=== PATIENT | male | born 1945 | race Caucasian/White ===

== ENCOUNTER → 2017-03-06 | Outpatient (CLI) | payer OTHER | LOC: FIMAGING 09:10 | PROVIDERS: ATTEND Family Medicine Sports Medicine | DX: M16.0 Bilateral primary osteoarthritis of hip (principal); M17.11 Unilateral primary osteoarthritis, right knee; M11.261 Other chondrocalcinosis, right knee ==

== ENCOUNTER → 2017-03-19 | Outpatient (CLI) | payer OTHER | LOC: FIMAGING 12:45 | PROVIDERS: ATTEND Family Medicine Sports Medicine | DX: M54.5 Low back pain (principal); M51.37 Other intervertebral disc degeneration, lumbosacral region; M43.06 Spondylolysis, lumbar region; M16.0 Bilateral primary osteoarthritis of hip ==

== ENCOUNTER → 2017-04-28 | Outpatient (CLI) | payer OTHER | LOC: FIMAGING 15:09 | PROVIDERS: ATTEND Family Medicine Sports Medicine | DX: M51.26 Other intervertebral disc displacement, lumbar region (principal); M47.896 Other spondylosis, lumbar region; M51.36 Other intervertebral disc degeneration, lumbar region; M48.06 Spinal stenosis, lumbar region ==

== ENCOUNTER 2018-03-20 05:31 | Inpatient (IN) | payer OTHER ==
[2018-03-20] MEDS ORDERED: MAGNESIUM HYDROXIDE 30 ML UDCUP PO PRN (06:04)
[2018-03-20] MEDS ORDERED: ONDANSETRON DISINTEGRATING 4 MG TAB PO PRN (06:04)
[2018-03-20] MEDS ORDERED: ONDANSETRON 4 MG/2 ML VIAL IVP PRN ×2 (06:04→08:36)
[2018-03-20] MEDS ORDERED: diphenhydrAMINE 25 MG CAP PO PRN (06:04)
[2018-03-20] MEDS ORDERED: CYCLOBENZAPRINE 10 MG TAB PO PRN (06:04)
[2018-03-20] MEDS ORDERED: ACETAMINOPHEN 325 MG TAB PO ONE (06:04)
[2018-03-20] MEDS ORDERED: FAMOTIDINE 20 MG TAB PO ONE (06:04)
[2018-03-20] MEDS ORDERED: POLYETHYLENE GLYCOL 3350 17 GM PKT PO PRN (06:04)
[2018-03-20] MEDS ORDERED: DIPHENOXYLATE/ATROPINE LOMOTIL 1 TAB PO PRN (06:04)
[2018-03-20] MEDS ORDERED: oxyCODONE IR 5 MG TAB PO PRN (06:04)
[2018-03-20] MEDS ORDERED: BISACODYL 10 MG SUPP PR PRN (06:04)
[2018-03-20] MEDS ORDERED: LR 1,000 ML IV SCH (06:04)
[2018-03-20] MEDS ORDERED: ONDANSETRON 4 MG/2 ML VIAL IVP ONE (06:04)
[2018-03-20] MEDS ORDERED: LACTULOSE 20 GM/30 ML UDCUP PO PRN (06:04)
[2018-03-20] MEDS ORDERED: PROMETHAZINE HCL 25 MG SUPPR PR PRN (06:04)
[2018-03-20] MEDS ORDERED: ceFAZolin 2 GM/DEXTROSE 100 ML IV ONE (06:04)
[2018-03-20] MEDS ORDERED: PROMETHAZINE HCL 25 MG/ML INJ IVP PRN ×3 (06:04→09:39)
[2018-03-20] MEDS ORDERED: TEMAZEPAM 15 MG CAP PO PRN ×2 (06:04→09:39)
[2018-03-20] MEDS ORDERED: LR 1,000 ML IV ONE (06:09)
[2018-03-20] MEDS ORDERED: LIDOCAINE 1% 2 ML INJ ID PRN (06:09)
--- NOTE | 2018-03-20 07:07 | PDHPUP ---
History & Physical Update H&P update statement: This history and physical update is based on an assessment of the patient which was completed after admission or registration (within 24 hours), but prior to the surgery/procedure. H&P update: H&P reviewed & patient examined (no changes), no change in patient' s condition since H&P completed
[2018-03-20] MEDS ORDERED: MIDAZOLAM 2 MG/2 ML VIAL IVP ONE (07:12)
--- NOTE | 2018-03-20 07:14 | PDANEPAE ---
ANE History of Present Illness r hip oa ANE Past Medical History - Cardiovascular History Hx Hypertension: No Hx Arrhythmias: No Hx Chest Pain: No Hx Coronary Artery / Peripheral Vascular Disease: No Hx CHF / Valvular Disease: Yes Hx Palpitations: No Cardiovascular History Comment: hx of syncope. 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 seen at [facility]. hyperlipidemia - Pulmonary History Hx COPD: No Hx Asthma/Reactive Airway Disease: No Hx Recent Upper Respiratory Infection: No Hx Oxygen in Use at Home: No Hx Sleep Apnea: No Sleep Apnea Screening Result - Last Documented: Negative - Neurologic History Hx Cerebrovascular Accident: No Hx Seizures: No Hx Dementia: No - Endocrine History Hx Diabetes: No - Renal History Hx Renal Disorders: Yes Renal History Comment: bph. hx of negative prostate bx a year ago - Liver History Hx Hepatic Disorders: No - Neurological & Psychiatric Hx Hx Neurological and Psychiatric Disorders: No - Cancer History Hx Cancer: No - Congenital Disorder History Hx Congenital Disorders: No - GI History Hx Gastrointestinal Disorders: No - Other Health History Other Health History: wearing glasses more than contacts. dental fillings. fungus to toenails and fingernails- healing now - Chronic Pain History Chronic Pain: Yes (bilateral hips) - Surgical History Prior Surgeries: 12/16/10 AVR. tonsillectomy ANE Review of Systems Review of Systems: - Exercise capacity METS (RN): 3 METS ANE Patient History - Allergies Allergies/Adverse Reactions: No Known Allergies Allergy (Verified 03/08/18 11:26) - Home Medications Home Medications: Aspirin EC [Aspirin EC 81 mg (*)] 81 mg PO DAILY 03/08/18 [Last Taken 03/13/18] Cholecalciferol Vit D3 [Vitamin D3 (*)] 2,000 units PO DAILY 03/08/18 [Last Taken 03/13/18] Herbals/Supplements -Info Only 1 ea PO DAILY 03/08/18 [Last Taken 03/13/18] - NPO status NPO Since - Liquids (Date): 03/19/18 NPO Since - Liquids (Time): 22:30 NPO Since - Solids (Date): 03/19/18 NPO Since - Solids (Time): 21:30 - Smoking Hx Smoking Status: Never smoked - Family Anes Hx Family Hx Anesthesia Complications: none ANE Labs/Vital Signs - Vital Signs Blood Pressure: 143/63 Heart Rate: 78 Respiratory Rate: 16 O2 Sat (%): 99 Height: 171.1 cm Weight: 74 kg ANE Physical Exam - Airway Neck exam: FROM Mallampati Score: Class 1 Mouth exam: normal dental/mouth exam - Pulmonary Pulmonary: no respiratory distress - Cardiovascular Cardiovascular: regular rate and rhythym - ASA Status ASA Status: III ANE Anesthesia Plan Anesthesia Plan: general endotracheal anesthesia, spinal
[2018-03-20] MEDS ORDERED: MIDAZOLAM 2 MG/2 ML VIAL ONE (07:17)
[2018-03-20] MEDS ORDERED: ROCURONIUM 50 MG/5 ML VIAL ONE (07:19)
[2018-03-20] MEDS ORDERED: fentaNYL 100 MCG/2 ML INJ ONE ×2 (07:19)
[2018-03-20] MEDS ORDERED: PROPOFOL 200 MG/20 ML VIAL ONE (07:19)
[2018-03-20] MEDS ORDERED: ceFAZolin 1 GM/5 ML SYR ONE (07:31)
[2018-03-20] MEDS ORDERED: ROPI/epINEPH/KETOROLAC IU ONE (08:00)
[2018-03-20] MEDS ORDERED: BUPIVACAINE/DEXTROSE 7.5MG/ML 2 ML SPINAL AMP SP ONE (08:19)
[2018-03-20] MEDS ORDERED: PHENYLEPHRINE HCL 100 MCG/ML SYR ONE (08:20)
[2018-03-20] MEDS ORDERED: ePHEDrine SULFATE 25 MG/5 ML SYR ONE (08:20)
[2018-03-20] MEDS ORDERED: ONDANSETRON 4 MG/2 ML VIAL ONE (08:20)
[2018-03-20] MEDS ORDERED: DEXAMETHASONE 4 MG/ML VIAL ONE (08:20)
[2018-03-20] MEDS ORDERED: HYDROmorphONE/DILAUDID 1 MG/ML INJ IVP PRN (08:36)
[2018-03-20] MEDS ORDERED: NALOXONE HCL 0.4 MG/ML INJ IVP PRN (08:36)
[2018-03-20] MEDS ORDERED: fentaNYL 100 MCG/2 ML INJ IVP PRN (08:36)
[2018-03-20] MEDS ORDERED: OXYCODONE/APAP 5/325 TAB PO PRN (09:39)
[2018-03-20] MEDS ORDERED: D5W 1/2 NS W/ 20 KCl/L 1,000 ML IV SCH (09:45)
--- NOTE | 2018-03-20 09:53 | PDMN ---
Medical Necessity Medical necessity: [facility] S560 [place] INTP only : R GAETANO
--- NOTE | 2018-03-20 09:59 | POSTANESTH ---
Post Anesthetic Evaluation Cardiovascular Status: Normal, Stable Respiratory Status: Normal, Stable Level of Consciousness/Mental Status: Can Participate in Eval Pain Control: Adequate, Prn Tx Ordered Nausea/Vomiting Control: Adequate, Prn Tx Ordered Complications Possibly Related to Anesthesia: None Noted
[2018-03-20] MEDS: SENNOSIDES/DOCUSATE SODIUM TAB PO SCH ×2 (11:01→21:29)
--- NOTE | 2018-03-20 14:25 | ASMTCASEMG ---
Living Arrangements What is your living Answers: Alone arrangement? Who do you live with? Type Of Residence What kind of residence do Answers: House you live in? Discharge Plan Comments Coordination Status Comments Notes: Pt is a 72 y/o man admitted for a total hip. Therapies have been ordered and awaiting recommendations. Needs are TBD at this time. CM to follow. Plan: TBD Date Signed: 03/20/2018 02:25 PM Electronically Signed By:CARLOS MANUEL Silverman
--- NOTE | 2018-03-20 15:53 | GOP ---
[f rep st] OPERATIVE REPORT DATE OF OPERATION: 03/20/2018 SURGEON: Ryan Allred MD RECEIVING MANAGER: Justino De Leon. ANESTHESIA: General. PREOPERATIVE DIAGNOSIS: Osteoarthritis, right hip. POSTOPERATIVE DIAGNOSIS: Osteoarthritis, right hip. PROCEDURE PERFORMED: Right total hip arthroplasty. FINDINGS: DESCRIPTION OF PROCEDURE: The patient was taken to the operating room, placed in the left lateral de cubitus position. Had his right hip and lower extremity prepped and draped in normal sterile fashion . A direct superior approach was utilized. The trochanteric markings were made. The incision was t hen made 45 degrees to the posterolateral corner of the greater trochanter. It was carried through d ermal subcutaneous tissues. The gluteal fascia was divided. Small bleeders were cauterized. Blunt dissection was performed down through the gluteus alex to the fat pad overlying the external rotat ors, and the gluteus medius was then reflected superiorly. The fat pad was taken down. The piriform is and obturator internus were released and tagged and reflected posteriorly. The hip capsule was th en incised. The posterior labral tissue was excised. The hip was then dislocated. neck cut was then made about 0.75 cm above the lesser trochanter. It was made with the oscillating saw. A 2nd neck cut was then made after measuring the head and neck segment, another 0.25 cm distally. The acetabulum was then exposed. The fatty tissue in the cotyloid notch was removed. The labral tis parul was excised. Reaming commenced in the acetabulum with a size 46, extending up to a size 60. The 60 trial was impacted into position. A trial liner was put in place. The neck segment was then exp osed and retractors were positioned. A box osteotome was used to remove bone in the greater trochant er. A starting reamer was placed down through the canal. Reaming commenced with a size 5 and extend ed up to a size 10. Broaching began with a size 7 and extended up to a size 10. Trial broach was le ft in place. We initially trialed a +0 and went to a +2.5 mm. Leg lengths were equal. The hip was put through a range of motion after relocating the trials. The hip was stable through flexion and in ternal rotation and extension and external rotation maneuver. The trials were brought out. The real implants were opened. Thorough lavage performed. Deep infiltration was performed with a cocktail solution. The real aceta bular cup was impacted into position. We had a good secure fit. No screws were felt necessary. The real liner was impacted into position. The cup was a size 60, Alpha Code G. The Trident 0 degree p olyethylene insert was a size 36, Alpha Code G. The stem that we selected was a secure fit max 127 d egree neck angle hip stem, size 10. This was impacted into position. The Biolox Delta ceramic C tap er femoral head was a +2-1/2 neck length. The trunnion was dried and this was impacted onto the trun nion. Relocation was performed. The hip was put through range of motion felt to be stable. The hip capsule was then reapproximated with a #1 Vicryl suture. The piriformis and obturator internus tend ons were then brought back down to the greater trochanter and reattached with a #1 Ethibond suture. The gluteal fascial interval was closed with a 2-0 Vicryl suture followed by closure of the subcutane ous tissue with a 2-0 Vicryl suture followed by closure of the dermis with a 3-0 Monocryl suture. Ir rigation performed with normal saline. Dermabond was utilized to seal the incision. The Mepilex ban dage was applied. The patient had an abduction pillow placed between his legs. [facility] was [facility] to the recovery room in stable condition. There were no operative complications. All implants w ere [place] implants with Trident cup and secure fit max stem with a Biolox Delta head. COMPLICATIONS: None. /[id number]/MODL
[2018-03-20] MEDS ORDERED: WARFARIN SODIUM 5 MG TAB PO ONE (16:00)
[2018-03-20] MEDS ORDERED: ceFAZolin 2 GM/DEXTROSE 100 ML IV SCH (16:00)
[2018-03-21 05:44] LABS: INR 1.29 (0.83-1.16); PROTIME(PATIENT) 16.3 SEC (12.0-15.0)
[2018-03-21] MEDS ORDERED: NS 1,000 ML IV ONE (06:00)
[2018-03-21] MEDS: SENNOSIDES/DOCUSATE SODIUM TAB PO SCH ×2 (08:33→23:18)
--- NOTE | 2018-03-21 10:52 | SOAPPROG ---
SOAP Progress Note Assessment/Plan: Assessment: POD#1 Right Hip Total Arthroplasty Pt. had some episodes of hypotension late last evening, 80's/40/s. Most notably at 11:30 pm while up walking, felt very lightheaded and almost had a syncopal episode. Laid in bed the remainder of the evening feeling somewhat weak, lightheaded. I was called this AM at 0545 and recommended a fluid bolus. Pt. has received this and is feeling better. His pressures have been coming up, currently at 96/50. Plan:Continue PT/OT Continue oral pain medications as needed Continue Abduction pillow while supine Continue SCD's/ETIENNE hose Continue Warfarin with pharmacy to dose Continue Ice PRN Continue LR 125ml/hour Monitor Blood Pressure Consider hospitalist consult if pressures remain low/pt. is symptomatic Continue to monitor urine output Likely D/C tomorrow or following day-depending on how pt. does with PT/OT and hypotension. Watch H and H, currently 8.03/18 Subjective: Pt. states that he has had no fevers, Headaches, lightheadedness is resolving as mentioned above, No SOB, Abd. pain, N/V, No N/T of the lower extremities, no calf pain. He states that while sitting, the pain in the right hip is non-existent. He has minor pain with moving in bed and transferring. The pain is in the lateral hip/radiating to the mid-upper leg. He states that it feels like muscle tightness. He mentions that when his aortic valve was replaced he had a similar reaction due to anesthesia, in which it was hard to keep his blood pressure up. After increasing fluids and some time, his pressures normalized. He does typically run quite low, however. He thinks he typically is 100/50's. Objective: Pt. is siting up in his room, conversing with OT and his family. He is resting comfortably in NAD. His respirations are easy and unlabored. Skin is warm and dry to all extremities. Distally, pulses are brisk and equal to both lower extremities. Calves are soft, supple, minimal to no tenderness to squeeze-only on the right. Examination of his dressing reveals a dry dressing in place with a small area of ecchymosis around the dressing. No discharge, redness, warmth or swelling. 03/21/18 10:35 Objective: Vital Signs Temp Pulse Resp BP Pulse Ox 37.4 C 83 16 85/43 L 95 03/21/18 07:52 03/21/18 07:52 03/21/18 07:52 03/21/18 07:52 03/21/18 07:52 Laboratory Results 03/21/18 05:01 03/20/18 03/21/18 03/22/18 05:59 05:59 05:59 Intake Total 4380 350 Output Total 1400 150 Balance 2980 200 PT 16.3 SEC (12.0-15.0) H 03/21/18 05:01 INR 1.29 (0.83-1.16) H 03/21/18 05:01 - Pending Discharge Pending Discharge Within 24 Hours: Yes Pending Discharge Within 48 Hours: Yes Pending Discharge Date: 03/22/18 Pending Discharge Time: 11:00 ICD10 Worksheet Patient Problems: Problems Problem Status Onset History of total replacement of right hip Acute - ICD10 Problem Qualifiers (1) History of total replacement of right hip
--- NOTE | 2018-03-21 11:00 | ASMTCMCOM ---
CM Note CM Note Notes: Chart reviewed. per therapies, SNF is recommended as patient is s/p hip with hypotension. His primary home would be unmanageable and he can go to a friends home but she has 14 stairs to navigate as well. The patient is agreeable to SNF. Provided pamphlets for [facility] as well as [facility]. He will stay overnight. Referrals to be placed in allscripts. CM to follow. plan: To SNF when medically cleared for discharge. Date Signed: 03/21/2018 10:53 AM Electronically Signed By:Karma Oakley RN
[2018-03-21] MEDS ORDERED: WARFARIN SODIUM 5 MG TAB PO ONE (16:00)
[2018-03-22 05:17] LABS: INR 1.33 (0.83-1.16); PROTIME(PATIENT) 16.7 SEC (12.0-15.0)
--- NOTE | 2018-03-22 07:43 | SOAPPROG ---
SOAP Progress Note Assessment/Plan: Assessment: need to motivate and get going today. Post op films look great. Incision/hip look good Plan: up with PT. evaluate with stairs. Trying to get him home but mind set on extended stay. With motivation this may change 03/22/18 07:40 Objective: Vital Signs Temp Pulse Resp BP Pulse Ox 37.4 C 79 18 95/54 L 94 03/21/18 22:13 03/21/18 22:13 03/21/18 22:13 03/21/18 22:13 03/21/18 22:13 Laboratory Results 03/22/18 04:55 03/21/18 03/22/18 03/23/18 05:59 05:59 05:59 Intake Total 4380 2400 Output Total 1400 1925 Balance 2980 475 PT 16.7 SEC (12.0-15.0) H 03/22/18 04:55 INR 1.33 (0.83-1.16) H 03/22/18 04:55 Leg soft, CSMT ok Hip films look good ICD10 Worksheet Patient Problems: Problems Problem Status Onset History of total replacement of right hip Acute
[2018-03-22 08:11] VITALS: BP 109/60
[2018-03-22] MEDS: SENNOSIDES/DOCUSATE SODIUM TAB PO SCH (08:34)
[2018-03-22] MEDS ORDERED: CHOLECALCIFEROL VIT D3 1,000 UNITS TAB PO SCH (09:00)
--- NOTE | 2018-03-22 10:10 | ASMTCMCOM ---
CM Note CM Note Notes: Chart reviewed. Spoke to Leonie PAINTER. Patient seen by Dr. Allred and has been cleared for dc to SNF rehab. I met with patient who reports his choice is [facility]. Awaiting Transfer of Care summary. Patient to inform his family. [facility] aware of likely dc today. CM available should other needs arise. Plan: DC to SNF [facility] Date Signed: 03/22/2018 10:09 AM Electronically Signed By:Karma Oakley RN
--- NOTE | 2018-03-22 10:48 | PDIAF ---
- Diagnosis Diagnosis: Right total hip arthroplasty Code Status: Full Code - Medication Management Discharge Medications: Medications to Continue on Transfer Aspirin EC [Aspirin EC 81 mg (*)] 81 mg PO DAILY 03/08/18 [Last Taken 03/13/18] Cholecalciferol Vit D3 [Vitamin D3 (*)] 2,000 units PO DAILY 03/08/18 [Last Taken 03/13/18] Herbals/Supplements -Info Only 1 ea PO DAILY 03/08/18 [Last Taken 03/13/18] Additional Medication Instructions: Warfarin 5 mg. daily for 4 weeks. Pt. has prescription. Discharge Medications: Refer to the Discharge Home Medication list for PRN reason. PICC Care - Routine: N/A - Orders Services needed: Physical Therapy, Occupational Therapy Diet Recommendation: no restrictions on diet Diet Texture: Regular Texture Diet Wound Care Instructions: Please change dressing if wet or soaked through. Date to Remove Sutures/[place]: 04/02/18 (at patient's post-op visit in office) Activity/Weight Bearing Restrictions: Weight Bear as tolerated Additional Instructions: 1. The patient is to remain weight bearing as tolerated on his right lower extremity. He is to use assistive devices for ambulation purposes as instructed. He is to attend physical therapy at least twice weekly as instructed. 2. The patient is to continue his posterior hip precautions as instructed. He is to avoid flexion of the hip past 90 deg, as well as crossing his legs or feet past midline. 3. The patient is to continue to keep his surgical incision sites clean and dry at all times, covering them for showering purposes. He is to avoid soaking his surgical incisions until after his follow up. 4. The patient is to continue watch for signs of infection at his surgical incision sites, including but not limited to: increased redness or drainage, significant increases in pain or swelling, or constitutional symptoms such as fevers, chills, nausea or vomiting. He is to contact the office immediately should any of these occur. 5. The patient is to continue to wear his ETIENNE hose, day and night, until follow up. 6. The patient is to continue his Warfarin medication as directed. He will need to have outpatient PT/INR testing done twice weekly (preferably Mondays and ) to assist in the dosing of this medication. The results of these lab test will be relayed to the office at [facility], who will then contact the patient to adjust his dosages as necessary. This will continue for 4 weeks postoperatively. 7. The patient is to avoid NSAID medications while he is on his warfarin. He is also to avoid smoking as this can delay healing. 8. The patient is to take his prescription pain medication as directed, as well as resume his home medications as directed. 9. The patient is to follow up with Dr. Allred 10-14 days postoperatively, or sooner with any additional concerns or complaints. This appointment has been previously scheduled. 10. The patient is encouraged to contact the office at [phone] with any questions/concerns. - Labs/Radiology PT/INR Date: 03/25/18 (Every Sunday and for 4 weeks. ) - Follow Up Care Current Providers and Referrals: Shai Schneider MD [Primary Care Provider] - Ryan Allred MD [Medical Doctor] - (The patient will follow up 10-14 days postoperatively, or sooner with any additional concerns or complaints. This appointment has been previously scheduled for 04/02/2018)
--- NOTE | 2018-03-22 12:06 | ASMTLACE ---
GHAZAL Length of stay for Answers: 2 days current admission Acuity / Level of Answers: Yes Care: Did the patient have an inpatient admission? Comorbidities - select Answers: Congestive heart failure all that apply Opioid dependence / Chronic pain # of Emergency department Answers: 0 visits in the last 6 months Score: 11 Date Signed: 03/22/2018 12:06 PM Electronically Signed By:Karma Oakley RN
--- NOTE | 2018-03-22 13:37 | PDIAF ---
- Diagnosis Diagnosis: Right total hip arthroplasty Code Status: Full Code - Medication Management Discharge Medications: Medications to Continue on Transfer Aspirin EC [Aspirin EC 81 mg (*)] 81 mg PO DAILY 03/08/18 [Last Taken 03/13/18] Cholecalciferol Vit D3 [Vitamin D3 (*)] 2,000 units PO DAILY 03/08/18 [Last Taken 03/13/18] Herbals/Supplements -Info Only 1 ea PO DAILY 03/08/18 [Last Taken 03/13/18] Percocet 5/325 (*) 1 - 2 tab PO Q4-6PRN PRN 03/22/18 [Last Taken Unknown] Warfarin Sodium tab PO DAILY 03/22/18 [Last Taken Unknown] Additional Medication Instructions: Warfarin 5 mg. daily for 4 weeks. Pt. has prescription. Discharge Medications: Refer to the Discharge Home Medication list for PRN reason. PICC Care - Routine: N/A - Orders Services needed: Physical Therapy, Occupational Therapy Diet Recommendation: no restrictions on diet Diet Texture: Regular Texture Diet Wound Care Instructions: Please change dressing if wet or soaked through. Date to Remove Sutures/[place]: 04/02/18 (at patient's post-op visit in office) Activity/Weight Bearing Restrictions: Weight Bear as tolerated Additional Instructions: 1. The patient is to remain weight bearing as tolerated on his right lower extremity. He is to use assistive devices for ambulation purposes as instructed. He is to attend physical therapy at least twice weekly as instructed. 2. The patient is to continue his posterior hip precautions as instructed. He is to avoid flexion of the hip past 90 deg, as well as crossing his legs or feet past midline. 3. The patient is to continue to keep his surgical incision sites clean and dry at all times, covering them for showering purposes. He is to avoid soaking his surgical incisions until after his follow up. 4. The patient is to continue watch for signs of infection at his surgical incision sites, including but not limited to: increased redness or drainage, significant increases in pain or swelling, or constitutional symptoms such as fevers, chills, nausea or vomiting. He is to contact the office immediately should any of these occur. 5. The patient is to continue to wear his ETIENNE hose, day and night, until follow up. 6. The patient is to continue his Warfarin medication as directed. He will need to have outpatient PT/INR testing done twice weekly (preferably Mondays and ) to assist in the dosing of this medication. The results of these lab test will be relayed to the office at [facility], who will then contact the patient to adjust his dosages as necessary. This will continue for 4 weeks postoperatively. 7. The patient is to avoid NSAID medications while he is on his warfarin. He is also to avoid smoking as this can delay healing. 8. The patient is to take his prescription pain medication as directed, as well as resume his home medications as directed. 9. The patient is to follow up with Dr. Allred 10-14 days postoperatively, or sooner with any additional concerns or complaints. This appointment has been previously scheduled. 10. The patient is encouraged to contact the office at [phone] with any questions/concerns. - Labs/Radiology PT/INR Date: 03/25/18 (Every Sunday and for 4 weeks. ) - Follow Up Care Current Providers and Referrals: Shai Schneider MD [Primary Care Provider] - Ryan Allred MD [Medical Doctor] - (The patient will follow up 10-14 days postoperatively, or sooner with any additional concerns or complaints. This appointment has been previously scheduled for 04/02/2018)
--- NOTE | 2018-03-22 14:14 | ASDISCHSUM ---
Discharge Information Plan Status:SNF Medically Cleared to Leave:03/22/2018 Discharge Date:03/22/2018 01:38 PM CM D/C Disposition:Shelter Facility ADT D/C Disposition:Shelter Facility Projected Discharge Date:03/22/2018 11:00 AM Transportation at D/C:Wheelchair Van Discharge Delay Reason: Follow-Up Date:03/22/2018 11:00 AM Discharge Slot: Final Diagnosis: Placement Information Referral Type:*[facility]/SNF Referral ID:[facility]-[id number] Provider Name:[facility] Address 1:[address] Address 2: City:[place] Selection Factors: State:[place] Patient Contact Information Contact Name:ERNESTO Relationship:Other Address: Work Phone: City:[place] Alternate Phone: State/Zip Code:[place] Email: Financial Information Financial Class:Medicare Advantage Plans Primary Plan Desc:[facility] [employer] Primary Plan Number:[id number] Secondary Plan Desc: Secondary Plan Number: Assessment Information [facility] Initial CM Assessment Living Arrangements What is your living Answers: Alone arrangement? Who do you live with? Type Of Residence What kind of residence do Answers: House you live in? Discharge Plan Comments Coordination Status Comments Notes: Pt is a 72 y/o man admitted for a total hip. Therapies have been ordered and awaiting recommendations. Needs are TBD at this time. CM to follow. Plan: TBD Date Signed: 03/20/2018 02:25 PM Electronically Signed By:CARLOS MANUEL Silverman LACE LACGala Length of stay for Answers: 2 days current admission Acuity / Level of Answers: Yes Care: Did the patient have an inpatient admission? Comorbidities - select Answers: Congestive heart failure all that apply Opioid dependence / Chronic pain # of Emergency department Answers: 0 visits in the last 6 months Score: 11 Date Signed: 03/22/2018 12:06 PM Electronically Signed By:Karma Oakley RN [facility] CM Progress Note CM Note CM Note Notes: Chart reviewed. per therapies, SNF is recommended as patient is s/p hip with hypotension. His primary home would be unmanageable and he can go to a friends home but she has 14 stairs to navigate as well. The patient is agreeable to SNF. Provided pamphlets for [facility] as well as [facility]. He will stay overnight. Referrals to be placed in allscripts. CM to follow. plan: To SNF when medically cleared for discharge. Date Signed: 03/21/2018 10:53 AM Electronically Signed By:Karma Oakley RN [facility] CM Progress Note CM Note CM Note Notes: Chart reviewed. Spoke to Leonie PAINTER. Patient seen by Dr. Allred and has been cleared for dc to SNF rehab. I met with patient who reports his choice is [facility]. Awaiting Transfer of Care summary. Patient to inform his family. [facility] aware of likely dc today. CM available should other needs arise. Plan: DC to SNF [facility] Date Signed: 03/22/2018 10:09 AM Electronically Signed By:Karma Oakley RN Intervention Information Intervention Type:*IM-Signed Date of Service:03/22/2018 10:18 AM Patient Type:Inpatient Staff Member:Michelle Edwards Hours: Discipline: Severity: Comment:
--- NOTE | 2018-04-19 14:35 | GDS ---
[f rep st] DISCHARGE SUMMARY PREOPERATIVE DIAGNOSIS: Right hip osteoarthritis. POSTOPERATIVE DIAGNOSIS: Right hip osteoarthritis. PROCEDURE PERFORMED: Right total hip arthroplasty. HOSPITAL COURSE: The patient was admitted, placed on IV Ancef for antibiotic measure and taken to [facility] operating room on 03/20/2018, whereupon he underwent a right total hip arthroplasty performed by Dr Jennyfer Allred. There were no intraoperative complications. Postoperative treatment for VTE prophylaxis in cluded mechanical prophylaxis with ETIENNE hose and sequential compression devices, as well as warfarin f or VTE chemoprophylaxis. His incision appeared to be healing well at the time of discharge and his h ospital stay was otherwise uneventful. DISCHARGE INSTRUCTIONS: The patient was advised to remain weightbearing as tolerated on his right lo wer extremity. He was to use assistive devices for ambulation as instructed. He was to continue phy sical therapy twice weekly as instructed. He was also to continue posterior hip precautions as instr ucted. The patient followed up 10-14 days postoperatively for wound check and suture removal. He wa s advised to continue to wear his ETIENNE hose day and night until his followup appointment, and continue his warfarin medication, as well as PT and INR checks as ordered. He also was advised to avoid anti -inflammatory medications while he was on his warfarin. He could resume his other medications upon r eturning home. /[id number]/MODL
== END 2018-03-22 13:38 | DRG 470 ==
LOC: F3N 05:31
PROVIDERS: ADMIT Orthopaedic Surgery Sports Medicine; ATTEND Orthopaedic Surgery Sports Medicine
PROC: 0SR904Z Replacement of Right Hip Joint with Ceramic on Polyethylene Synthetic Substitute, Open Approach (ICD-10-PCS; principal; 2018-03-20 07:15)
DX: M16.11 Unilateral primary osteoarthritis, right hip (principal); N40.0 Benign prostatic hyperplasia without lower urinary tract symptoms
CPT/HCPCS: 97110-GP; 97116-GP; 97161-GP; 97165-GO; 97530-GO; 97530-GP; G8978-GP-CJ; G8979-GP-CI; G8987-GO-CJ; G8988-GO-CI; J0171; J0690; J1100; J1885; J2250; J2370; J2405; J2704; J2795; J3010

== ENCOUNTER 2018-07-03 05:45 | Inpatient (IN) | payer OTHER ==
[2018-07-03] MEDS ORDERED: TRANEXAMIC ACID 1,000 MG in NS 100 ML IV ONE (06:00)
[2018-07-03] MEDS ORDERED: GABAPENTIN 300 MG CAP PO ONE (06:00)
[2018-07-03] MEDS ORDERED: FAMOTIDINE 20 MG TAB PO ONE (06:00)
[2018-07-03] MEDS ORDERED: ACETAMINOPHEN 325 MG TAB PO ONE (06:00)
[2018-07-03] MEDS ORDERED: ceFAZolin 2 GM/DEXTROSE 100 ML IV ONE (06:00)
[2018-07-03] MEDS ORDERED: DEXAMETHASONE 4 MG/ML VIAL IVP ONE (06:00)
[2018-07-03] MEDS ORDERED: LR 1,000 ML IV ONE (06:01)
[2018-07-03] MEDS ORDERED: ceFAZolin 1 GM/5 ML SYR ONE (06:45)
[2018-07-03] MEDS ORDERED: ROPIVACAINE 0.2% 80 MG, EPINEPHrine 0.2 MG, KETOROLAC TROMETHAMINE 30 MG, morphINE 10 M... IU ONE (07:05)
[2018-07-03] MEDS ORDERED: MIDAZOLAM 2 MG/2 ML VIAL IVP ONE (07:07)
--- NOTE | 2018-07-03 07:09 | PDANEPAE ---
ANE Past Medical History - Cardiovascular History Hx Hypertension: No Hx Arrhythmias: No Hx Chest Pain: No Hx Coronary Artery / Peripheral Vascular Disease: No Hx CHF / Valvular Disease: Yes Hx Palpitations: No Cardiovascular History Comment: hx of syncope. 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 LAST VISIT APR 2018. hyperlipidemia - Pulmonary History Hx COPD: No Hx Asthma/Reactive Airway Disease: No Hx Recent Upper Respiratory Infection: No Hx Oxygen in Use at Home: No Hx Sleep Apnea: No Sleep Apnea Screening Result - Last Documented: Negative - Neurologic History Hx Cerebrovascular Accident: No Hx Seizures: No Hx Dementia: No - Endocrine History Hx Diabetes: No - Renal History Hx Renal Disorders: Yes Renal History Comment: bph. hx of negative prostate bx - Liver History Hx Hepatic Disorders: No - Neurological & Psychiatric Hx Hx Neurological and Psychiatric Disorders: No - Cancer History Hx Cancer: No - Congenital Disorder History Hx Congenital Disorders: No - GI History Hx Gastrointestinal Disorders: No - Other Health History Other Health History: NEG - Chronic Pain History Chronic Pain: Yes (bilateral hips) - Surgical History Prior Surgeries: R GAETANO. 12/16/10 AVR. tonsillectomy ANE Review of Systems Review of Systems: - Exercise capacity METS (RN): 4 METS ANE Patient History - Allergies Allergies/Adverse Reactions: No Known Allergies Allergy (Verified 07/03/18 06:05) - Home Medications Home medications: home medication list seen and reviewed Home Medications: Aspirin EC [Aspirin EC 81 mg (*)] 81 mg PO DAILY 03/08/18 [Last Taken 03/13/18] Herbals/Supplements -Info Only 1 ea PO DAILY 03/08/18 [Last Taken 03/13/18] Warfarin Sodium 6 mg PO DAILY 06/21/18 [Last Taken Unknown] - NPO status NPO Status: no food or drink >8 hours NPO Since - Liquids (Date): 07/03/18 NPO Since - Liquids (Time): 03:00 NPO Since - Solids (Date): 07/02/18 NPO Since - Solids (Time): 19:00 - Anes Hx Anes Hx: no prior problems (Urinary retention following SAB for GAETANO) - Smoking Hx Smoking Status: Never smoked - Family Anes Hx Family Hx Anesthesia Complications: none ANE Labs/Vital Signs - Vital Signs Blood Pressure: 117/76 Heart Rate: 76 Respiratory Rate: 16 Height: 177.8 cm Weight: 72.575 kg ANE Physical Exam - Airway Neck exam: FROM Mallampati Score: Class 2 Mouth exam: normal dental/mouth exam - Pulmonary Pulmonary: no respiratory distress, no rales or rhonchi, clear to auscultation - Cardiovascular Cardiovascular: regular rate and rhythym, no murmur, rub, or gallop - ASA Status ASA Status: III ANE Anesthesia Plan Anesthesia Plan: spinal
--- NOTE | 2018-07-03 07:11 | PDGENHP ---
History & Physical Chief Complaint: Left Hip Pain History of Present Illness: Patient has long standing osteoarthritis of left hip. he has failed conservative management and has decided to move forward with a left GAETANO. He has previous right GAETANO which he has done well with. Allergies: None. Medications: baby aspirin daily. Medical/Surgical: History of Right Total Hip Arhtroplasty 3 months ago. Aortic valve replacement surgery many years ago. Pertinent Past, Social, Family History: denies smoking. Drinks occasionally. No relevant family history Relevant Physical Exam: LUE. Painful ROM of left hip. No open wounds or signs of infection. Walks with antalgic gait favoring left leg. Cardio: RRR. Lungs: Clear to auscultation
[2018-07-03] MEDS ORDERED: BUPIVACAINE/DEXTROSE 7.5MG/ML 2 ML SPINAL AMP SP ONE (07:18)
[2018-07-03] MEDS ORDERED: PROPOFOL 200 MG/20 ML VIAL ONE ×2 (07:25→08:43)
[2018-07-03] MEDS ORDERED: fentaNYL 100 MCG/2 ML INJ ONE (07:25)
[2018-07-03] MEDS ORDERED: ROPI/epiNEPH/KETOROLAC/morphINE JOINT COCKTAIL IU ONE (07:30)
[2018-07-03] MEDS ORDERED: ePHEDrine SULFATE 25 MG/5 ML SYR ONE (08:18)
[2018-07-03] MEDS ORDERED: DEXAMETHASONE 4 MG/ML VIAL ONE ×2 (08:18)
[2018-07-03] MEDS ORDERED: NALOXONE HCL 0.4 MG/ML INJ IVP PRN (08:40)
[2018-07-03] MEDS ORDERED: fentaNYL 100 MCG/2 ML INJ IVP PRN (08:40)
[2018-07-03] MEDS ORDERED: HYDROCODONE/APAP 5/325 TAB PO PRN (08:40)
[2018-07-03] MEDS ORDERED: oxyCODONE IR 5 MG TAB PO PRN ×2 (08:40→09:23)
[2018-07-03] MEDS ORDERED: DIAZEPAM 5 MG/ML 1 ML SYR IVP PRN (08:40)
[2018-07-03] MEDS ORDERED: PROMETHAZINE HCL 25 MG/ML INJ IVP PRN ×2 (08:40→09:23)
[2018-07-03] MEDS ORDERED: ONDANSETRON 4 MG/2 ML VIAL IVP PRN ×2 (08:40→09:23)
[2018-07-03] MEDS ORDERED: LR 500 ML IV PRN (08:40)
[2018-07-03] MEDS ORDERED: ACETAMINOPHEN 500 MG TAB PO PRN (08:40)
[2018-07-03] MEDS ORDERED: PHENYLEPHRINE HCL 100 MCG/ML SYR ONE (08:52)
[2018-07-03] MEDS ORDERED: PROMETHAZINE HCL 25 MG SUPPR PR PRN (09:23)
[2018-07-03] MEDS ORDERED: METOCLOPRAMIDE 10 MG/2 ML VIAL IVP PRN (09:23)
[2018-07-03] MEDS ORDERED: ONDANSETRON DISINTEGRATING 4 MG TAB PO PRN (09:23)
[2018-07-03] MEDS ORDERED: LACTULOSE 20 GM/30 ML UDCUP PO PRN (09:23)
[2018-07-03] MEDS ORDERED: diphenhydrAMINE 25 MG CAP PO PRN (09:23)
[2018-07-03] MEDS ORDERED: BISACODYL 10 MG SUPP PR PRN (09:23)
[2018-07-03] MEDS ORDERED: MAGNESIUM HYDROXIDE 30 ML UDCUP PO PRN (09:23)
[2018-07-03] MEDS ORDERED: TEMAZEPAM 15 MG CAP PO PRN (09:23)
[2018-07-03] MEDS ORDERED: NS 500 ML IV PRN (09:23)
[2018-07-03] MEDS ORDERED: POLYETHYLENE GLYCOL 3350 17 GM PKT PO PRN (09:23)
[2018-07-03] MEDS ORDERED: CYCLOBENZAPRINE 10 MG TAB PO PRN (09:23)
[2018-07-03] MEDS ORDERED: DIPHENOXYLATE/ATROPINE LOMOTIL 1 TAB PO PRN (09:23)
[2018-07-03] MEDS ORDERED: NS 1,000 ML IV SCH (09:30)
--- NOTE | 2018-07-03 09:33 | POSTANESTH ---
Post Anesthetic Evaluation Cardiovascular Status: Other, See Comment (BP 94/60 on arrival; I expect it to rise as SAB resolves.) Respiratory Status: Normal, Stable, Similar to Pre-op Cond. Level of Consciousness/Mental Status: Can Participate in Eval, Alert and Oriented Pain Control: Adequate, Prn Tx Ordered Nausea/Vomiting Control: Adequate, Prn Tx Ordered Complications Possibly Related to Anesthesia: None Noted
[2018-07-03] MEDS ORDERED: PHENYLEPHRINE HCL 100 MCG/ML SYR IVP PRN (09:45)
--- NOTE | 2018-07-03 10:28 | GOP ---
DATE OF OPERATION: 07/03/2018 SURGEON: Ryan Allred MD ANESTHESIA: Spinal. PREOPERATIVE DIAGNOSIS: Left hip osteoarthritis. POSTOPERATIVE DIAGNOSIS: Left hip osteoarthritis. PROCEDURE PERFORMED: Left total hip arthroplasty. FINDINGS: DESCRIPTION OF PROCEDURE: The patient was taken to the operating room, administered spinal anesthesi a, placed in the right lateral decubitus position. Had his left hip and lower extremity prepped and draped in normal sterile fashion. A posterolateral incision was made through dermal and subcutaneous tissues. The IP band was split lo ngitudinally, extended up to the gluteal fascia. Charnley retractors were put in position. The hip was internally rotated. The external rotators were taken down above the piriformis and extended dist ally in an L-shaped fashion. The posterior hip capsule was tagged, along with the piriformis. The f emoral head was dislocated. Our neck cut was assessed off the lesser trochanter approximately 1 cm. This was made with the oscillating saw. The head and neck segment was then removed. The retractors were put in place. The acetabulum was exposed. The labral tissue was removed from around the aceta bulum. The fatty tissue in the pulvinar was excised. Reaming commenced with a size 53 and extended up to a size 60 initially in 2 mm increments and then l ast 3 joslyn in 1 mm increments. This 60 trial fit appropriately. A trial liner was put in position. The femoral neck segment was then delivered. A box osteotome was used to remove bone from the grea ter trochanter. The starting reamer was placed down through the femoral canal. Reaming then commenc ed with a size 5 and extended up to a size 10. Broaching began with a size 7 and extended up to a si ze 10. The 10 fit appropriately. A reduction was performed with a standard head and neck length. T he intraoperative x-ray showed slight verticality of the cup. Trials were brought out. The real implants were opened. The cup was a size 60 cluster hole acetabul ar shell Alpha Code G. This was impacted. Two screws were used to fixate it. These were 6.5 screws , 1 measuring 35 and the other measuring 30 mm in length. The screw hole was drilled and subsequentl y measured. Good fixation was obtained. The cup liner was then impacted into position. The Secur-F it Max 132 degree neck angle hip stem, size #10 with a C taper was then impacted into the proximal fe moral canal. The trunnion was dried. We trialed this with a +0 and it felt appropriate. The +0 nec k length was utilized and the real head was opened. This was impacted onto the dried trunnion. The hip was reduced and felt to be stable through a flexion internal rotation maneuver and extension exte rnal rotation maneuver. Thorough lavage performed with normal saline. The cocktail was placed deeply. The external rotators and posterior hip capsule were repaired with a 2-0 Ethibond sutures previously placed. These were b rought through drill holes in the greater trochanter and tied laterally. The IP band was closed with a series of interrupted #1 Vicryl sutures in a figure-eight fashion. The subcutaneous tissues were closed with a 2-0 Vicryl suture, followed by closure of the dermis with edward. A sterile compressi on dressing applied. The patient tolerated procedure well and was transferred back to recovery in st able condition. No operative complications. COMPLICATIONS: None. VARNISH BLENDER: Samir Alexandre PA-C IMPLANTS: System utilized was [place] Trident acetabulum and [place] Secur-Fit Max hip stem. /[id number]/MODL
[2018-07-03 11:45] LABS: INR 1.09 (0.83-1.16); PROTIME(PATIENT) 14.3 SEC (12.0-15.0)
--- NOTE | 2018-07-03 12:53 | PDMN ---
Medical Necessity Medical necessity: Pt meets inpt criteria per MD order and [facility] [place] S-560, [place] Arthroplasty, CPT 45060, Medicare inpt only list. 72 y/o w/L hip osteoarthritis admitted for L total hip arthroplasty, anticipate>2MN for GAETANO and post-op care.
[2018-07-03] MEDS: ACETAMINOPHEN 325 MG TAB PO SCH ×2 (13:11→18:15)
[2018-07-03] MEDS: ceFAZolin 2 GM/DEXTROSE 100 ML IV SCH (16:22)
[2018-07-03] MEDS: WARFARIN SODIUM 3 MG TAB PO SCH (16:30)
[2018-07-03] MEDS: FAMOTIDINE 20 MG TAB PO SCH (22:59)
[2018-07-03] MEDS: SENNOSIDES/DOCUSATE SODIUM TAB PO SCH (23:00)
[2018-07-04] MEDS: ceFAZolin 2 GM/DEXTROSE 100 ML IV SCH (00:52)
[2018-07-04] MEDS: ACETAMINOPHEN 325 MG TAB PO SCH ×5 (00:52→23:35)
[2018-07-04 06:13] LABS: INR 1.27 (0.83-1.16); PROTIME(PATIENT) 16.1 SEC (12.0-15.0)
--- NOTE | 2018-07-04 07:31 | SOAPPROG ---
SOAP Progress Note Assessment/Plan: Assessment: POD #1 s/p Left Total Hip Arthroplasty Plan: Doing very well following surgery. PT/OT: Continue WBAT with walker. Posterior hip precautions. Pain is well controlled. Discharge: Plans for SNF most likely tomorrow 07/04. Will have Behavioral Health Care Manager meet with him today to work out the details. 07/04/18 07:28 Subjective: Iron states he is doing very well. He feels pain has been well controlled, and has but up to walk a few times. He is going to the bathroom with no issues. He is in good spirit. He denies any SOB, CP, nausea or vomiting. Objective: Vital Signs Temp Pulse Resp BP Pulse Ox 36.6 C 75 16 89/57 L 93 07/04/18 04:00 07/04/18 04:00 07/04/18 04:00 07/04/18 04:00 07/04/18 04:00 Laboratory Results 07/04/18 04:36 07/03/18 07/04/18 07/05/18 05:59 05:59 05:59 Intake Total 2129 500 Output Total 1280 200 Balance 849 300 PT 16.1 SEC (12.0-15.0) H 07/04/18 04:36 INR 1.27 (0.83-1.16) H 07/04/18 04:36 PHYSICAL EXAM LLE Dressing clean and dry. Drain has been pulled. Good PF/DF of ankle. Distal neovasculature intact. ICD10 Worksheet Patient Problems: Problems Problem Status Onset History of total replacement of right hip Acute
[2018-07-04] MEDS: FAMOTIDINE 20 MG TAB PO SCH ×2 (08:43→20:30)
[2018-07-04] MEDS: SENNOSIDES/DOCUSATE SODIUM TAB PO SCH ×3 (08:45→20:30)
--- NOTE | 2018-07-04 14:10 | ASMTCMCOM ---
CM Note CM Note Notes: Pt accepted at [facility] for likely d/c tomorrow. Pt reports he has no friends/family to help postop and his home presents a challenge for recovery as he resides in a unfinished house. For example, pt states the home has no hot water. D/c plan of care: [facility] when medically stable. Date Signed: 07/04/2018 02:09 PM Electronically Signed By:NATHALY Buchanan
[2018-07-04] MEDS: WARFARIN SODIUM 3 MG TAB PO SCH (17:36)
[2018-07-05 05:18] LABS: INR 1.53 (0.83-1.16); PROTIME(PATIENT) 18.5 SEC (12.0-15.0)
[2018-07-05] MEDS: ACETAMINOPHEN 325 MG TAB PO SCH (05:26)
--- NOTE | 2018-07-05 06:54 | SOAPPROG ---
SOAP Progress Note Assessment/Plan: Assessment: POD #2 s/p Left Total Hip Arthroplasty Plan: Doing very well following surgery. Acute blood Loss Anemia, asymptomatic. Encourage good oral hydration. When home , take an iron containing mutivitamin. PT/OT: Continue WBAT with walker. Posterior hip precautions. Pain is well controlled. Discharge: Plans for SNF today 07/05. 07/05/18 06:50 07/05/18 06:53 Subjective: He is doing very well. Pain well controlled. No CP, SOB, N/V. He is very happy right now with his results thusfar. Objective: Vital Signs Temp Pulse Resp BP Pulse Ox 37.0 C 81 16 96/62 L 93 07/04/18 22:52 07/04/18 22:52 07/04/18 22:52 07/04/18 22:52 07/04/18 22:52 Laboratory Results 07/05/18 04:20 07/04/18 07/05/18 07/06/18 05:59 05:59 05:59 Intake Total 2129 1000 Output Total 1280 1050 Balance 849 -50 PT 18.5 SEC (12.0-15.0) H 07/05/18 04:20 INR 1.53 (0.83-1.16) H 07/05/18 04:20 PHYSICAL EXAM Dressing present. Clean and Dry. Wiggles toes well and moves ankle well. Distal Nuerovasc intact. - Pending Discharge Pending Discharge Within 24 Hours: Yes Pending Discharge Date: 07/05/18 (Discharge this afternoon to SNF) Pending Discharge Time: 11:00 ICD10 Worksheet Patient Problems: Problems Problem Status Onset History of total replacement of right hip Acute
[2018-07-05 07:38] VITALS: BP 123/55
--- NOTE | 2018-07-05 07:57 | PDDCSUM ---
Discharge Summary Discharge Summary: DISCHARGE SUMMARY (Orthopedic Surgery) Patient: Iron Smith DATE OF ADMISSION: 07/03/18 DATE OF DISCHARGE: 07/05/18 PRINCIPLE DIAGNOSES: Left Hip Osteoarthritis PRINCIPLE AND SECONDARY PROCEDURES: Left Total Hip Arthroplasty MEDICATIONS GIVEN DURING ADMISSION: See Medication list EMR SIGNIFICANT FINDINGS: Acute Blood Loss Anemia, Asymptomatic following surgery. No Blood Products Given. Vital signs remained stable. Wound remained benign. Neurovascular status distal to surgical site remained intact. HOSPITAL COURSE: Post-operatively, the patient was managed according to the Joint Replacement Protocol. The VTE prophylaxis consisted of ambulation and SCDs in addition to Warfarin for anticoagulation. I&O monitored and remained within acceptable limits. Dressings applied and checked Daily. IV fluids given until patient taking fluids by mouth well. Physical therapy initiated on postoperative day one and continued twice a day during hospital stay. The patient progressed well after surgery. They were cleared by PT and OT prior to discharge. PATIENTS CONDITION ON DISCHARGE: Stable. Given the achievement of goals, the [facility] DISCHARGE INSTRUCTIONS: Weight-bearing as tolerated. Ambulation and transfers with assistance, and use of walker. Detailed instructions on wound care provided to the patient. Dressing applied. Patient may remove dressing as directed. Patient will call [facility] if there is increased temperature greater than 101.5, increased redness, swelling, drainage, increased pain that is not relieved by current pain regimen as per postop orthopedic discharge instruction sheet. FOLLOW UP: The patient was instructed to return to [facility] in approximately 10-14 days for a wound inspection. In addition, radiographs will be obtained at this office visit. Electronically signed by Samir Alexandre PA-C
--- NOTE | 2018-07-05 08:01 | PDIAF ---
- Diagnosis Diagnosis: Left Hip Osteoarthritis Code Status: Full Code - Medication Management Discharge Medications: Medications to Continue on Transfer Warfarin Sodium 6 mg PO DAILY 06/21/18 [Last Taken 07/02/18 18:00] Acetaminophen [Tylenol 325mg (*)] 650 mg PO Q6HRS tab 07/05/18 [Last Taken Unknown] Sennosides/Docusate Sodium [Senokot-S] 1 - 2 tab PO BID tab 07/05/18 [Last Taken Unknown] oxyCODONE IR [Oxycodone Ir (*)] 5 - 10 mg PO Q4HRS PRN #40 tab 07/05/18 [Last Taken Unknown] Discharge Medications: Refer to the Discharge Home Medication list for PRN reason. - Orders Services needed: Physical Therapy, Occupational Therapy Diet Recommendation: no restrictions on diet Wound Care Instructions: Reinforce dressing or change as needed if saturated. Sutures/Kim Site: Will be removed at post-op appointment at [facility] Additional Instructions: DISCHARGE INSTRUCTIONS: Keep Dressing applied until seen for post-op appointment. Do not get dressing wet. Use walker for ambulation. Posterior Hip Precautions Warfarin to be used daily for DVT prevention. PT/INR checks to be done 2 times per week. Follow-up: [facility] in 10-14 days. Please call to confirm appointment. - Follow Up Care Current Providers and Referrals: Shai Schneider MD [Primary Care Provider] - Ryan Allred MD [Medical Doctor] -
--- NOTE | 2018-07-05 09:17 | ASMTCMCOM ---
CM Note CM Note Notes: Pt medically stable for d/c to [facility], orders sent in [employer]. JACI Elizabeth to call report. Beatriz scheduled wc transport for 11:00. Date Signed: 07/05/2018 09:16 AM Electronically Signed By:NATHALY Buchanan
[2018-07-05] MEDS: FAMOTIDINE 20 MG TAB PO SCH (09:27)
[2018-07-05] MEDS: SENNOSIDES/DOCUSATE SODIUM TAB PO SCH (09:27)
--- NOTE | 2018-07-05 09:54 | ASMTLACE ---
LACE Length of stay for Answers: 2 days current admission Acuity / Level of Answers: Yes Care: Did the patient have an inpatient admission? Comorbidities - select Answers: Congestive heart failure all that apply Opioid dependence / Chronic pain # of Emergency department Answers: 0 visits in the last 6 months Score: 11 Date Signed: 07/05/2018 09:53 AM Electronically Signed By:NATHALY Buchanan
--- NOTE | 2018-07-05 12:20 | ASDISCHSUM ---
Discharge Information Plan Status:SNF Medically Cleared to Leave: Discharge Date:07/05/2018 11:00 AM CM D[facility]C [facility] AD[facility] D[facility]C [facility] Projected Discharge Date:07/04/2018 11:00 AM Transportation at D/C:Wheelchair Van Discharge Delay Reason: Follow-Up Date:07/04/2018 11:00 AM Discharge Slot: Final Diagnosis: Placement Information Referral Type:*Residential/SNF Referral ID:[id number] Provider Name:[facility] Address 1:[address] Address 2: City:[place] Selection Factors: State:[place] Patient Contact Information Contact Name:ERNESTO Relationship:Other Address: Work Phone: City:[place] Alternate Phone: [facility] Code:[place] Email: Financial Information Financial Class:Medicare Advantage Plans Primary Plan Desc:[facility] [employer] PLANS Primary Plan Number:[id number] Secondary Plan Desc: Secondary Plan Number: Assessment Information LACE LACE Length of stay for Answers: 2 days current admission Acuity / Level of Answers: Yes Care: Did the patient have an inpatient admission? Comorbidities - select Answers: Congestive heart failure all that apply Opioid dependence / Chronic pain # of Emergency department Answers: 0 visits in the last 6 months Score: 11 Date Signed: 07/05/2018 09:53 AM Electronically Signed By:NATHALY Buchanan [facility] CM Progress Note CM Note CM Note Notes: Pt accepted at [facility] for likely d/c tomorrow. Pt reports he has no friends/family to help postop and his home presents a challenge for recovery as he resides in a unfinished house. For example, pt states the home has no hot water. D/c plan of care: [facility] when medically stable. Date Signed: 07/04/2018 02:09 PM Electronically Signed By:NATHALY Buchanan [facility] CM Progress Note CM Note CM Note Notes: Pt medically stable for d/c to [facility], orders sent in [employer]. JACI Elizabeth to call report. Beatriz scheduled wc transport for 11:00. Date Signed: 07/05/2018 09:16 AM Electronically Signed By:NATHALY Buchanan Intervention Information Intervention Type:*IM-Signed Date of Service:07/05/2018 09:31 AM Patient Type:Inpatient Staff Member:Michelle Edwards Hours: Discipline: Severity: Comment:
== END 2018-07-05 11:00 | DRG 470 ==
LOC: F3N 05:45
PROVIDERS: ADMIT Orthopaedic Surgery Sports Medicine; ATTEND Orthopaedic Surgery Sports Medicine
PROC: 0SRB02Z Replacement of Left Hip Joint with Metal on Polyethylene Synthetic Substitute, Open Approach (ICD-10-PCS; principal; 2018-07-03 07:15)
DX: M16.12 Unilateral primary osteoarthritis, left hip (principal); D62 Acute posthemorrhagic anemia; Z95.2 Presence of prosthetic heart valve; Z96.641 Presence of right artificial hip joint
CPT/HCPCS: 97116-GP; 97161-GP; 97165-GO; 97535-GO; C1713; G8978-GP-CK; G8979-GP-CJ; G8987-GO-CI; G8988-GO-CI; J0171; J0690; J1100; J1885; J2250; J2270; J2370; J2704; J2795; J3010